=== PATIENT | female | born 2000 | race Two or more races ===

== ENCOUNTER 2024-09-16 19:49 | Emergency (ER) | payer MEDICAID, OTHER ==
[~2024-09-16] VITALS: Ht 165.1 cm; Wt 66.7 kg
[2024-09-16 20:47] VITALS: BP 115/64; PULSE 74; RESP 16; TEMP 97.3; O2SAT 97
[2024-09-16] MEDS ORDERED: ACET500T58 PO (20:58)
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
--- NOTE | 2024-09-16 21:43 | DVH ---
CLINICAL INDICATION: Pain TECHNIQUE: XY R ANKLE 3 VIEW, XY R FOOT 3 VIEW XRAY Comparison: None FINDINGS/IMPRESSION: There is no evidence of acute fracture or dislocation. The visualized joint space is well maintained. The alignment is anatomical. There is no radiopaque foreign body.
== END 2024-09-16 22:00 | disposition home or self-care (01) ==
LOC: ER 19:49
DX: S93.491A Sprain of other ligament of right ankle, initial encounter (principal); S90.31XA Contusion of right foot, initial encounter; W22.8XXA Striking against or struck by other objects, initial encounter; Y93.89 Activity, other specified; Y92.89 Other specified places as the place of occurrence of the external cause; Y99.8 Other external cause status
CPT/HCPCS: 73610; 73630